=== PATIENT | female | born 1950 | race Caucasian/White ===

== ENCOUNTER 2017-03-23 15:42 | Inpatient (IN) | payer OTHER, MEDICARE, BC ==
[~2017-03-23] VITALS: Ht 165.1 cm; Wt 62.0 kg
[2017-03-23 15:54] VITALS: PULSE 75; RESP 24; TEMP 98.5; O2SAT 97
[2017-03-23] MEDS ORDERED: WELLTAB39 PO (16:05)
[2017-03-23] MEDS ORDERED: DEPA500T PO (16:05)
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
[2017-03-23 16:35] LABS: AUTOMATED NEUTROPHIL # 4.3 TH/MM3 (1.8-7.7); BASOPHIL % 0.5 % (0.0-2.0); EOSINOPHIL # 0.1 TH/MM3 (0-0.4); EOSINOPHIL % 1.1 % (0.0-4.0); HEMATOCRIT 30.1 % (35.0-46.0); HEMOGLOBIN 10.1 GM/DL (11.6-15.3); LYMPH % 40.6 % (9.0-44.0); LYMPHOCYTE # 3.5 TH/MM3 (1.0-4.8); MEAN CELL VOLUME 92.5 FL (80.0-100.0); MEAN CORPUSCULAR HGB CONC 33.5 % (32.0-36.0); MEAN PLATELET VOLUME 9.1 FL (7.0-11.0); MONO % 7.9 % (0.0-8.0); MONOCYTE # 0.7 TH/MM3 (0-0.9); NEUT % 49.9 % (16.0-70.0); PLATELET COUNT 247 TH/MM3 (150-450); RED BLOOD COUNT 3.26 MIL/MM3 (4.00-5.30); WHITE BLOOD COUNT 8.6 TH/MM3 (4.0-11.0)
[2017-03-23 16:52] LABS: INTERNATIONAL NORMALIZED RATIO 1.1 RATIO; PROTHROMBIN TIME - PATIENT 10.9 SEC (9.8-11.6)
[2017-03-23] MEDS ORDERED: IOHEXOL 350 MG/ML 10 ML VIAL (for RAD DIAG) IVCONTRAST ONE (16:59)
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
[2017-03-23 18:35] VITALS: BP 121/69; PULSE 95; RESP 20; TEMP 98.6; O2SAT 98
[2017-03-23 18:42] LABS: CALCIUM 7.8 MG/DL (8.5-10.1); CREATININE 0.87 MG/DL (0.50-1.00)
[2017-03-23 18:53] LABS: BICARBONATE 22.2 MEQ/L (21.0-32.0)
[2017-03-23] MEDS ORDERED: CHLORHEXIDINE GLUCONATE 2 % 1 PACK (2 CLOTHS) TOP PRN (20:15)
[2017-03-23] MEDS ORDERED: ONDANSETRON HCL 4 MG/2 ML VIAL IV PUSH PRN (20:15)
[2017-03-23] MEDS ORDERED: ENALAPRILAT 1.25 MG/ML VIAL IV PUSH PRN (20:15)
[2017-03-23] MEDS ORDERED: SODIUM CHLORIDE 0.9% FLUSH 10 ML FLUSH IV FLUSH PRN (20:15)
[2017-03-23] MEDS ORDERED: MISCELLANEOUS NURSING INFORMATION XX SCH (20:15)
[2017-03-23] MEDS ORDERED: MORPHINE SULFATE 4 MG/ML INJ IV PUSH PRN (20:15)
[2017-03-23] MEDS ORDERED: MAGNESIUM HYDROXIDE SUSP 30 ML CUP PO PRN (20:15)
[2017-03-23 20:20] VITALS: BP 129/71; PULSE 94; RESP 18; TEMP 99.4; O2SAT 98
[2017-03-23] MEDS ORDERED: CHLORHEXIDINE GLUCONATE 2 % 1 PACK (2 CLOTHS) TOPICAL PRN (21:00)
[2017-03-23] MEDS ORDERED: INSULIN HUMAN REGULAR 1,000 UNITS/10 ML VIAL SQ PRN (21:00)
[2017-03-23] MEDS ORDERED: DOCUSATE SODIUM 100 MG CAP PO SCH (21:00)
[2017-03-23] MEDS ORDERED: METOPROLOL TARTRATE 25 MG TAB PO PRN (21:00)
[2017-03-23] MEDS ORDERED: SODIUM CHLORID 0.9% 500 ML IV PRN (21:00)
[2017-03-23] MEDS ORDERED: POVIDONE IODINE 5% (ANTISEPSIS KIT) 4 APPLICATIONS EACH NARE PRN (21:00)
[2017-03-23] MEDS ORDERED: LACTATED RINGER'S 1000 ML IV PRN (21:00)
[2017-03-23] MEDS: DIVALPROEX DR 500 MG TABEC PO SCH (21:15)
[2017-03-23] MEDS: BACITRACIN TOP OINT 15 GM TUBE TOP SCH (21:15)
[2017-03-23] MEDS: ACETAMINOPHEN/HYDROcodone 325 MG/5 MG TAB PO PRN (21:17)
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
[2017-03-24 00:05] VITALS: BP 140/62; PULSE 93; RESP 18; TEMP 99.2; O2SAT 98
[2017-03-24] MEDS: ACETAMINOPHEN/HYDROcodone 325 MG/5 MG TAB PO PRN ×2 (02:37→06:24)
[2017-03-24] MEDS: CHLORHEXIDINE GLUCONATE 2 % 1 PACK (2 CLOTHS) TOP SCH (04:00)
[2017-03-24 04:10] VITALS: BP 132/66; PULSE 86; RESP 17; TEMP 97.5; O2SAT 96
[2017-03-24] MEDS ORDERED: NORC5TAB PO (06:42)
[2017-03-24] MEDS ORDERED: WALKER/ADULT/FO1 MIS (06:42)
[2017-03-24 07:39] VITALS: BP 143/64; PULSE 81; RESP 19; TEMP 98.4; O2SAT 98
[2017-03-24] MEDS ORDERED: LACTULOSE SYRUP 20 GM/30 ML CUP PO PRN (07:45)
[2017-03-24] MEDS ORDERED: MORPHINE SULFATE 2 MG/ML INJ IV PUSH PRN (07:45)
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
[2017-03-24] MEDS: BACITRACIN TOP OINT 15 GM TUBE TOP SCH ×2 (09:00→20:19)
[2017-03-24] MEDS: ACETAMINOPHEN/HYDROcodone 325 MG/10 MG TAB PO PRN ×3 (09:23→20:18)
[2017-03-24] MEDS: DOCUSATE SODIUM 50 MG/SENNA 8.6 MG TAB PO SCH ×2 (09:23→20:17)
[2017-03-24] MEDS: DIVALPROEX DR 500 MG TABEC PO SCH ×2 (09:23→20:17)
[2017-03-24] MEDS: METHOCARBAMOL 500 MG TAB PO SCH ×3 (09:24→20:18)
[2017-03-24] MEDS: POLYETHYLENE GLYCOL 17 GM PKG PO SCH (09:24)
[2017-03-24] MEDS: LIDOCAINE HCL 5% PATCH T-DERMAL SCH (09:24)
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
[2017-03-24 11:28] VITALS: BP 124/62; PULSE 79; RESP 19; TEMP 97.1; O2SAT 97
[2017-03-24] MEDS: ENOXAPARIN SODIUM 40 MG/0.4 ML SYRINGE SQ SCH (12:27)
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
[2017-03-24 15:29] VITALS: BP 139/64; PULSE 82; RESP 19; TEMP 97.8; O2SAT 97
[2017-03-24 16:13] LABS: AUTOMATED NEUTROPHIL # 5.2 TH/MM3 (1.8-7.7); BASOPHIL % 0.2 % (0.0-2.0); EOSINOPHIL % 0.2 % (0.0-4.0); HEMATOCRIT 29.9 % (35.0-46.0); HEMOGLOBIN 10.2 GM/DL (11.6-15.3); LYMPH % 19.9 % (9.0-44.0); LYMPHOCYTE # 1.5 TH/MM3 (1.0-4.8); MEAN CELL VOLUME 91.3 FL (80.0-100.0); MEAN PLATELET VOLUME 8.9 FL (7.0-11.0); MONO % 11.3 % (0.0-8.0); MONOCYTE # 0.9 TH/MM3 (0-0.9); NEUT % 68.4 % (16.0-70.0); PLATELET COUNT 191 TH/MM3 (150-450); RED BLOOD COUNT 3.28 MIL/MM3 (4.00-5.30); RED CELL DISTRIBUTION WIDTH 12.8 % (11.6-17.2); WHITE BLOOD COUNT 7.6 TH/MM3 (4.0-11.0)
[2017-03-24 16:32] LABS: BICARBONATE 28.6 MEQ/L (21.0-32.0); CALCIUM 8.2 MG/DL (8.5-10.1); CREATININE 0.65 MG/DL (0.50-1.00)
[2017-03-24 20:00] VITALS: BP 124/60; PULSE 85; RESP 18; TEMP 98.4; O2SAT 95
[2017-03-25] VITALS (7 sets, daily range): BP systolic 111–156; BP diastolic 58–70; PULSE 72–104; RESP 18; TEMP 97.6–98.2; O2SAT 95–98
[2017-03-25] MEDS: ACETAMINOPHEN/HYDROcodone 325 MG/10 MG TAB PO PRN ×5 (00:38→21:38)
[2017-03-25] MEDS: CHLORHEXIDINE GLUCONATE 2 % 1 PACK (2 CLOTHS) TOP SCH (04:00)
[2017-03-25] MEDS: METHOCARBAMOL 500 MG TAB PO SCH ×3 (04:43→21:34)
[2017-03-25] MEDS: BACITRACIN TOP OINT 15 GM TUBE TOP SCH ×2 (09:00→21:00)
[2017-03-25] MEDS: DOCUSATE SODIUM 50 MG/SENNA 8.6 MG TAB PO SCH ×2 (09:01→21:00)
[2017-03-25] MEDS: buPROPion HCL 150 MG SUSTAINED RELEASE TAB PO SCH ×2 (09:01→21:34)
[2017-03-25] MEDS: POLYETHYLENE GLYCOL 17 GM PKG PO SCH (09:01)
[2017-03-25] MEDS: DIVALPROEX DR 500 MG TABEC PO SCH ×2 (09:03→21:35)
[2017-03-25] MEDS ORDERED: fentaNYL 50 MCG/HR PATCH T-DERMAL SCH (12:00)
[2017-03-25] MEDS: ENOXAPARIN SODIUM 40 MG/0.4 ML SYRINGE SQ SCH (12:10)
[2017-03-25] MEDS: LIDOCAINE HCL 5% PATCH T-DERMAL SCH (12:11)
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
--- NOTE | 2017-03-25 12:53 | HHI.FF ---
Face to Face Verification Diagnosis: (1) Pelvic fracture (2) Fracture of transverse process of lumbar vertebra (3) Right rib fracture Physical Therapy Order: Evaluate and Treat, Improve ambulation, Strength and gait training Home Health Nursing Order: Nursing assessment with vital signs I have seen patient Keisha May on 03/25/17. My clinical findings support the need for the requested home health care services because: Limited ability to care for self High risk of falls I certify that my clinical findings support that this patient is homebound because: Unsteady gait/balance Giovani Villalpando Mar 25, 2017 12:53
[2017-03-25] MEDS ORDERED: LACTULOSE SYRUP 20 GM/30 ML CUP PO ONE (13:00)
[2017-03-26] MEDS: ACETAMINOPHEN/HYDROcodone 325 MG/10 MG TAB PO PRN ×4 (01:56→14:27)
[2017-03-26] MEDS: CHLORHEXIDINE GLUCONATE 2 % 1 PACK (2 CLOTHS) TOP SCH (01:57)
[2017-03-26] MEDS: METHOCARBAMOL 500 MG TAB PO SCH ×2 (06:28→11:55)
[2017-03-26 08:00] VITALS: BP 145/63; PULSE 102; RESP 18; TEMP 98.8; O2SAT 96
[2017-03-26] MEDS: POLYETHYLENE GLYCOL 17 GM PKG PO SCH (08:42)
[2017-03-26] MEDS: LIDOCAINE HCL 5% PATCH T-DERMAL SCH (08:43)
[2017-03-26] MEDS: buPROPion HCL 150 MG SUSTAINED RELEASE TAB PO SCH (08:43)
[2017-03-26] MEDS: DIVALPROEX DR 500 MG TABEC PO SCH (08:43)
[2017-03-26] MEDS: DOCUSATE SODIUM 50 MG/SENNA 8.6 MG TAB PO SCH (08:43)
[2017-03-26] MEDS: BACITRACIN TOP OINT 15 GM TUBE TOP SCH (09:00)
[2017-03-26] MEDS: ENOXAPARIN SODIUM 40 MG/0.4 ML SYRINGE SQ SCH (11:56)
[2017-03-26 12:00] VITALS: BP 127/60; PULSE 81; RESP 16; TEMP 96.9; O2SAT 96
[2017-03-26] MEDS ORDERED: HYDR-3583 PO (13:42)
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
[2017-03-26 15:18] VITALS: RESP 18
[2017-03-28] MEDS ORDERED: REMOVE OLD DURAGESIC (FENTANYL) PATCH T-DERMAL SCH (12:00)
== END 2017-03-26 15:51 | disposition home health service (06) | DRG 964 ==
LOC: NEPC 15:42 → EDBD 18:05 → NEDA 18:05 → N06B 20:06
PROVIDERS: ADMIT Surgery; ATTEND Surgery
DX: S32.592A Other specified fracture of left pubis, initial encounter for closed fracture (principal); S32.019A Unspecified fracture of first lumbar vertebra, initial encounter for closed fracture; S27.321A Contusion of lung, unilateral, initial encounter; S22.31XA Fracture of one rib, right side, initial encounter for closed fracture; R91.8 Other nonspecific abnormal finding of lung field; F31.9 Bipolar disorder, unspecified; F10.129 Alcohol abuse with intoxication, unspecified; V23.5XXA Motorcycle passenger injured in collision with car, pick-up truck or van in traffic accident, initial encounter; Y92.410 Unspecified street and highway as the place of occurrence of the external cause; Y90.4 Blood alcohol level of 80-99 mg/100 ml
CPT/HCPCS: 70450; 71045; 71260; 72125; 72132; 72170; 74177; 80048; 80307; 85025; 85610; 85730; 94150; J1650; L0150; Q9967